=== PATIENT | male | born 1995 | race African-American/Black ===

== ENCOUNTER 2021-02-27 23:44 | Emergency (ER) | payer MEDICAID, OTHER ==
[~2021-02-27] VITALS: Ht 185.4 cm; Wt 64.2 kg
[2021-02-28 02:39] VITALS: BP 137/88
[2021-02-28] MEDS ORDERED: cefTRIAXone SOD 1,000 MG VL IM ONE (03:00)
[2021-02-28] MEDS ORDERED: KETOROLAC TROMETH 60MG/2ML VIAL IM ONE (03:00)
== END 2021-02-28 03:18 | disposition home or self-care (01) ==
LOC: ER 23:44
DX: S06.0X9A Concussion with loss of consciousness of unspecified duration, initial encounter (principal); N45.1 Epididymitis; N20.0 Calculus of kidney; N43.3 Hydrocele, unspecified; J45.909 Unspecified asthma, uncomplicated; F17.210 Nicotine dependence, cigarettes, uncomplicated; V89.2XXA Person injured in unspecified motor-vehicle accident, traffic, initial encounter; Y93.89 Activity, other specified; Y92.89 Other specified places as the place of occurrence of the external cause; Y99.8 Other external cause status
CPT/HCPCS: 70450; 74176; 76870; 96372; 99284; J0696; J1885

== ENCOUNTER 2021-08-08 17:46 | Emergency (ER) | payer MEDICAID ==
[~2021-08-08] VITALS: Ht 182.9 cm; Wt 65.8 kg
[2021-08-08] MEDS ORDERED: CEPH500C PO (19:12)
[2021-08-08] MEDS ORDERED: IBUP600T28 PO (19:12)
[2021-08-08] MEDS ORDERED: HYDR-4902 PO (19:12)
[2021-08-08] MEDS ORDERED: CEPHALEXIN 250 MG CAP PO ONE (19:15)
[2021-08-08] MEDS ORDERED: HYDROcodone-ACET 5/325MG TAB PO ONE (19:15)
[2021-08-08 19:36] VITALS: BP 131/71
== END 2021-08-08 20:06 | disposition home or self-care (01) ==
LOC: ER 17:46
DX: S02.31XA Fracture of orbital floor, right side, initial encounter for closed fracture (principal); J45.909 Unspecified asthma, uncomplicated; F17.210 Nicotine dependence, cigarettes, uncomplicated; Z79.1 Long term (current) use of non-steroidal anti-inflammatories (NSAID); Z79.899 Other long term (current) drug therapy; Y04.1XXA Assault by human bite, initial encounter; Y93.89 Activity, other specified; Y92.89 Other specified places as the place of occurrence of the external cause; Y99.8 Other external cause status
CPT/HCPCS: 70450; 70486